=== PATIENT | female | born 1995 | race Caucasian/White ===

== ENCOUNTER 2017-05-18 20:08 | Emergency (ER) | payer OTHER ==
[2017-05-18] MEDS ORDERED: predniSONE 20 MG Tab PO ONE (20:22)
[2017-05-18] MEDS ORDERED: Albuterol/Ipratropium 3.0-0.5 MG/3 ML Neb Soln NEB ONE (20:22)
[2017-05-18] MEDS ORDERED: Albuterol/Ipratropium 3.0-0.5 MG/3 ML Neb Soln ONE (20:23)
[2017-05-18] MEDS ORDERED: predniSONE 20 MG Tab ONE (20:24)
--- NOTE | 2017-05-18 20:27 | EDM.PDOC ---
ED HPI GENERAL MEDICAL PROBLEM - General Chief Complaint: Respiratory Problem Stated Complaint: SHORTNESS OF BREATH, ASTHMA Time Seen by Provider: 05/18/17 20:19 - History of Present Illness INITIAL COMMENTS - FREE TEXT/NARRATIVE: HISTORY AND PHYSICAL: History of present illness: Patient's a 22-year-old female with history of asthma who has run out of her inhaler and home medications to accommodate her nebulizer presents with a concern of shortness of breath and wheezing and worse over last day or 2 she is not a smoker she denies fever chills nausea vomiting or other complaints. Review of systems: As per history of present illness and below otherwise all systems reviewed and negative. Past medical history: As per history of present illness and as reviewed below otherwise noncontributory. Surgical history: As per history of present illness and as reviewed below otherwise noncontributory. Social history: No reported history of drug or alcohol abuse. Family history: As per history of present illness and as reviewed below otherwise noncontributory. Physical exam: HEENT: Atraumatic, normocephalic, pupils reactive, negative for conjunctival pallor or scleral icterus, mucous membranes moist, throat clear, neck supple, nontender, trachea midline. Lungs: Slightly diminished with end expiratory wheezing noted, breath sounds equal bilaterally, chest nontender. Heart: S1S2, regular, negative for clicks, rubs, or JVD. Abdomen: Soft, nondistended, nontender. Negative for masses or hepatosplenomegaly. Negative for costovertebral tenderness. Pelvis: Stable nontender. Genitourinary: Deferred. Rectal: Deferred. Extremities: Atraumatic, negative for cords or calf pain. Neurovascular unremarkable. Neuro: Awake, alert, oriented. Cranial nerves II through XII unremarkable. Cerebellum unremarkable. Motor and sensory unremarkable throughout. Exam nonfocal. Diagnostics: None Therapeutics: Albuterol ipratropium nebulizer 40 mg prednisone by mouth Impression: #1 asthmatic exacerbation #2 medical noncompliance Definitive disposition and diagnosis as appropriate pending reevaluation and review of above. Chest Pain Score (Numeric/FACES): 7 - Related Data Allergies Allergy/AdvReac Type Severity Reaction Status Date / Time dust Allergy Shortness Uncoded 05/18/17 20:21 of Breath grass Allergy Shortness Uncoded 05/18/17 20:21 of Breath pollen Allergy Shortness Uncoded 05/18/17 20:21 of Breath Home Meds: Home Meds . [No Known Home Meds] 05/18/17 [History] ED ROS GENERAL - Review of Systems Review Of Systems: ROS reveals no pertinent complaints other than HPI. ED EXAM, GENERAL - Physical Exam Exam: See Below (See dictation) Course - Vital Signs Last Recorded V/S: Last Vital Signs Temp 36.3 C 05/18/17 20:18 Pulse 95 05/18/17 20:18 Resp 20 05/18/17 20:18 BP 140/60 05/18/17 20:18 Pulse Ox 95 05/18/17 20:18 - Orders/Labs/Meds Orders: Active Orders 24 hr Category Date Time Status RT Aerosol Therapy [RC] ASDIRECTED Care 05/18/17 20:22 Active Meds: Medications Discontinued Medications Generic Name Dose Route Start Last Admin Trade Name Freq PRN Reason Stop Dose Admin Albuterol/Ipratropium 3 ml 05/18/17 20:22 05/18/17 20:30 Duoneb 3.0-0.5 Mg/3 Ml NEB 05/18/17 20:23 3 ml ONETIME ONE Administration Albuterol/Ipratropium Confirm 05/18/17 20:23 Duoneb 3.0-0.5 Mg/3 Ml Administered 05/18/17 20:24 Dose 3 ml .ROUTE .STK-MED ONE Prednisone 40 mg 05/18/17 20:22 Prednisone PO 05/18/17 20:23 ONETIME ONE Prednisone Confirm 05/18/17 20:24 Prednisone Administered 05/18/17 20:25 Dose 40 mg .ROUTE .STK-MED ONE Departure - Departure Time of Disposition: 20:27 Disposition: Home, Self-Care 01 Condition: Good Clinical Impression: Acute asthma - Discharge Information Referrals: PCP,None [Primary Care Provider] - Forms: ED Department Discharge Additional Instructions: The following information is given to patients seen in the emergency department who are being discharged to home. This information is to outline your options for follow-up care. We provide all patients seen in our emergency department with a follow-up referral. The need for follow-up, as well as the timing and circumstances, are variable depending upon the specifics of your emergency department visit. If you don't have a primary care physician on staff, we will provide you with a referral. We always advise you to contact your personal physician following an emergency department visit to inform them of the circumstance of the visit and for follow-up with them and/or the need for any referrals to a consulting specialist. The emergency department will also refer you to a specialist when appropriate. This referral assures that you have the opportunity for followup care with a specialist. All of these measure are taken in an effort to provide you with optimal care, which includes your followup. Under all circumstances we always encourage you to contact your private physician who remains a resource for coordinating your care. When calling for followup care, please make the office aware that this follow-up is from your recent emergency room visit. If for any reason you are refused follow-up, please contact the [facility] emergency department at and asked to speak to the emergency department charge nurse. Albuterol as prescribed Medrol as directed follow-up primary medical doctor 1-2 days return as needed as discussed - My Orders Last 24 Hours: My Active Orders 05/18/17 20:22 RT Aerosol Therapy [RC] ASDIRECTED - Assessment/Plan Last 24 Hours: My Active Orders 05/18/17 20:22 RT Aerosol Therapy [RC] ASDIRECTED
[2017-05-19 00:38] VITALS: BP 127/74
== END 2017-05-18 21:15 | disposition home or self-care (01) ==
LOC: MW.ED 20:08
DX: J45.901 Unspecified asthma with (acute) exacerbation (principal); Z91.09 Other allergy status, other than to drugs and biological substances; Z91.14 Patient's other noncompliance with medication regimen
CPT/HCPCS: 99283; A9270

== ENCOUNTER 2018-02-14 16:28 | Emergency (ER) | payer BC, OTHER ==
[2018-02-14 17:47] VITALS: BP 124/65
[2018-02-14] MEDS ORDERED: Sodium Chloride 0.9% 10 ML Syringe FLUSH PRN (18:17)
[2018-02-14] MEDS ORDERED: Sodium Chloride 0.9% 2.5 ML Syringe FLUSH PRN (18:17)
--- NOTE | 2018-02-14 18:36 | EDM.PDOC ---
ED HPI GENERAL MEDICAL PROBLEM - General Chief Complaint: [facility] Problem Stated Complaint: 8WEEKS/BLEEDING Time Seen by Provider: 02/14/18 18:33 Source of Information: Reports: Patient History Limitations: Reports: No Limitations - History of Present Illness INITIAL COMMENTS - FREE TEXT/NARRATIVE: HISTORY AND PHYSICAL: []23-year-old female presenting with vaginal bleeding History of Present Illness: []Patient is 8 weeks and started spotting this morning was heavier this afternoon with her bleeding, she did have mild cramping with this. She was seen at [facility] Review of Systems: As per history of present illness and below otherwise all systems reviewed and negative. Past medical history: As per history of present illness and as reviewed below otherwise noncontributory. Surgical history: As per history of present illness and as reviewed below otherwise noncontributory. Social history: No reported history of drug or alcohol abuse. Family history: As per history of present illness and as reviewed below otherwise noncontributory. Physical exam: Alert and oriented female answering questions appropriately in full sentences without shortness of breath assessment is that HEENT: Atraumatic, normocehpalic, pupils reactive, negative for conjunctival pallor or scleral icterus, mucous membranes moist, throat clear, neck supple, nontender, trachea midline. Lungs: Clear to auscultation, breath sounds equal bilaterally, chest non tender. Heart: S1S2, regular, negative for clicks, rubs, or JVD. Abdomen: Soft, nondistended, nontender. Negative for masses or hepatossplenmegaly. Negative for costovertebral tenderness. Pelvis: Stable nontender. Genitourinary: Deferred. Rectal: Deferred Extremities: Atraumatic, negative for cords or calf pain. Neurovascular unremarkable. Neuro: Awake, alert, oriented. Cranial nerves II through XII unremarkable. Cerebellum unremarkable. Motor and sensory unremarkable throughout. Exam nonfocal. Discussed the results with the patient and significant other Diagnostics: []CBC CMP UA hCG quantitative Therapeutics: [] Impression: Spontanious AB/ miscarriage Plan: []Discharged home Follow up with your [facility] [employer] [employer] next week Any worsening of symptoms return to the ER as discussed Definitive disposition and diagnosis as appropriate pending reevaluation and review of above. Onset: Today, Sudden Duration: Hour(s): Location: Reports: Pelvis Quality: Reports: Ache Severity: Mild Improves with: Reports: None Worsens with: Reports: None Associated Symptoms: Reports: No Other Symptoms Lower Anterior Abdomen Pain Score (Numeric/FACES): 2 - Related Data Allergies Allergy/AdvReac Type Severity Reaction Status Date / Time dust Allergy Shortness Uncoded 05/18/17 20:21 of Breath grass Allergy Shortness Uncoded 05/18/17 20:21 of Breath pollen Allergy Shortness Uncoded 05/18/17 20:21 of Breath Home Meds: Home Meds Pnv No.122/Iron/Folic Acid [ Multi Tablet] 1 tab DAILY 02/14/18 [History ] Past Medical History - Past Health History Medical/Surgical History: Denies Medical/Surgical History HEENT History: Reports: Impaired Vision Respiratory History: Reports: Asthma - Past Surgical History HEENT Surgical History: Reports: LASIK Respiratory Surgical History: Reports: None Social & Family History - Family History Family Medical History: Noncontributory - Caffeine Use Caffeine Use: Reports: None ED ROS GENERAL - Review of Systems Review Of Systems: ROS reveals no pertinent complaints other than HPI. ED EXAM - Physical Exam Exam: See Below (See dictation) Course - Vital Signs Last Recorded V/S: Last Vital Signs Temp 37.3 C 02/14/18 17:20 Pulse 65 02/14/18 17:20 Resp 18 02/14/18 17:20 BP 124/65 02/14/18 17:20 Pulse Ox 98 02/14/18 17:20 - Orders/Labs/Meds Orders: Active Orders 24 hr Category Date Time Status OB Transvaginal [US] Stat Exams 02/14/18 18:18 Taken UA W/MICROSCOPIC [URIN] Stat Lab 02/14/18 19:01 Ordered Sodium Chloride 0.9% [Saline Flush] Med 02/14/18 18:17 Active 10 ml FLUSH ASDIRECTED PRN Sodium Chloride 0.9% [Saline Flush] Med 02/14/18 18:17 Active 2.5 ml FLUSH ASDIRECTED PRN Saline Lock Insert [OM.PC] Stat Oth 02/14/18 18:17 Ordered Medication Orders Sodium Chloride (Saline Flush) 10 ml FLUSH ASDIRECTED PRN PRN Reason: Keep Vein Open Sodium Chloride (Saline Flush) 2.5 ml FLUSH ASDIRECTED PRN PRN Reason: Keep Vein Open Labs: Laboratory Tests 02/14/18 02/14/18 02/14/18 Range/Units 18:41 18:41 19:01 WBC 11.00 (4.0-11.0) K/uL RBC 4.39 (4.30-5.90) M/uL Hgb 13.3 (12.0-16.0) g/dL Hct 39.2 (36.0-46.0) % MCV 89.3 (80.0-98.0) fL MCH 30.3 (27.0-32.0) pg MCHC 33.9 (31.0-37.0) g/dL RDW Std Deviation 39.8 (28.0-62.0) fl RDW Coeff of Beatriz 12 (11.0-15.0) % Plt Count 210 (150-400) K/uL MPV 9.90 (7.40-12.00) fL Neut % (Auto) 59.7 (48.0-80.0) % Lymph % (Auto) 34.5 (16.0-40.0) % [place] % (Auto) 4.7 (0.0-15.0) % Eos % (Auto) 0.9 (0.0-7.0) % Baso % (Auto) 0.2 (0.0-1.5) % Neut # (Auto) 6.6 H (1.4-5.7) K/uL Lymph # (Auto) 3.8 H (0.6-2.4) K/uL [place] # (Auto) 0.5 (0.0-0.8) K/uL Eos # (Auto) 0.1 (0.0-0.7) K/uL Baso # (Auto) 0.0 (0.0-0.1) K/uL Nucleated RBC % 0.0 /100WBC Nucleated RBCs # 0 K/uL HCG, Quant 153.0 mIU/mL Urine Color RED Urine Appearance CLOUDY Urine pH 7.0 (5.0-8.0) Ur Specific [place] 1.020 (1.001-1.035) Urine Protein TRACE (NEGATIVE) mg/dL Urine Glucose (UA) NEGATIVE (NEGATIVE) mg/dL Urine Ketones NEGATIVE (NEGATIVE) mg/dL Urine Occult Blood LARGE H (NEGATIVE) Urine Nitrite NEGATIVE (NEGATIVE) Urine Bilirubin NEGATIVE (NEGATIVE) Urine Urobilinogen 0.2 (<2.0) EU/dL Ur Leukocyte Esterase NEGATIVE (NEGATIVE) Urine RBC TOO NUMBEROUS TO CT H (0-2/HPF) Urine WBC 0-2 (0-5/HPF) Ur Epithelial Cells MODERATE (NONE-FEW) Urine Bacteria RARE (NEGATIVE) Urinalysis Comment Meds: Medications Generic Name Dose Route Start Last Admin Trade Name Freq PRN Reason Stop Dose Admin Sodium Chloride 10 ml 02/14/18 18:17 Saline Flush FLUSH ASDIRECTED PRN Keep Vein Open Sodium Chloride 2.5 ml 02/14/18 18:17 Saline Flush FLUSH ASDIRECTED PRN Keep Vein Open Departure - Departure Time of Disposition: 20:27 Disposition: Home, Self-Care 01 Condition: Good Clinical Impression: Complete - Discharge Information Instructions: Miscarriage, [id number] Referrals: PCP,None [Primary Care Provider] - Forms: ED Department Discharge Additional Instructions: The following information is given to patients seen in the emergency department who are being discharged to home. This information is to outline your options for follow-up care. We provide all patients seen in our emergency department with a follow-up referral. The need for follow-up, as well as the timing and circumstances, are variable depending upon the specifics of your emergency department visit. If you don't have a primary care physician on staff, we will provide you with a referral. We always advise you to contact your personal physician following an emergency department visit to inform them of the circumstance of the visit and for follow-up with them and/or the need for any referrals to a consulting specialist. The emergency department will also refer you to a specialist when appropriate. This referral assures that you have the opportunity for followup care with a specialist. All of these measure are taken in an effort to provide you with optimal care, which includes your followup. Under all circumstances we always encourage you to contact your private physician who remains a resource for coordinating your care. When calling for followup care, please make the office aware that this follow-up is from your recent emergency room visit. If for any reason you are refused follow-up, please contact the [facility] emergency department at and asked to speak to the emergency department charge nurse. Ibuprofen or Tylenol for cramping discomfort Follow-up with [facility] next week evaluation - My Orders Last 24 Hours: My Active Orders 02/14/18 18:17 Sodium Chloride 0.9% [Saline Flush] 10 ml FLUSH ASDIRECTED PRN Sodium Chloride 0.9% [Saline Flush] 2.5 ml FLUSH ASDIRECTED PRN Saline Lock Insert [OM.PC] Stat 02/14/18 18:18 OB Transvaginal [US] Stat 02/14/18 19:01 UA W/MICROSCOPIC [URIN] Stat - Assessment/Plan Last 24 Hours: My Active Orders 02/14/18 18:17 Sodium Chloride 0.9% [Saline Flush] 10 ml FLUSH ASDIRECTED PRN Sodium Chloride 0.9% [Saline Flush] 2.5 ml FLUSH ASDIRECTED PRN Saline Lock Insert [OM.PC] Stat 02/14/18 18:18 OB Transvaginal [US] Stat 02/14/18 19:01 UA W/MICROSCOPIC [URIN] Stat
--- NOTE | 2018-02-17 09:27 | US ---
EXAM DATE: 02/14/18 PATIENT'S AGE: 23 Patient: PIPO LYONS Facility: [place], [place] Site . Site : 1995 Study: US OB Pelvis [id number]/2018 7:53:47 PM Ordering Physician: Doctor Rowan Final Report: CLINICAL HISTORY: Vaginal bleeding TECHNIQUE: Real time, soto scale images were acquired of the pelvis using a \ transvaginal approach. Color Doppler analysis was performed of the ovaries. FINDINGS: No intrauterine gestational sac pole yolk sac seen. Endometrial stripe measures 8 millimeters. Hyperechoic material in the endocervical canal could represent hemorrhage. Bilateral ovaries visualized and appear unremarkable. Probable corpus luteum cyst right ovary measuring 1.2 cm. Normal blood flow to both ovaries. No adnexal mass or free fluid. Impression: No intrauterine identified. Endometrial stripe measures 8 millimeters. Ovaries appear unremarkable. No adnexal mass or free fluid Findings could be on basis of very early IUP or SAB. Ectopic not completely excluded however no adnexal mass or free fluid seen. Dictated by Kelly Wray MD @ Feb 14 2018 8:19PM (Electronic Signature) Report Signed by Proxy. TALIA
== END 2018-02-14 20:30 | disposition home or self-care (01) ==
LOC: MW.ED 16:28
DX: O03.9 Complete or unspecified spontaneous abortion without complication (principal); J45.909 Unspecified asthma, uncomplicated; Z91.09 Other allergy status, other than to drugs and biological substances
CPT/HCPCS: 36415; 76817; 76817-26; 81001; 84702; 85025; 99284; 99284-25